=== PATIENT | female | born 1965 | race African-American/Black ===

== ENCOUNTER → 2016-10-02 | Outpatient (CLI) | payer SELFPAY ==
[~2016-10-02] MED LIST: ESCITALOPRAM OX10 MG PO; LASIX20 MG PO; LISINOPRIL20 MG PO; LOPRESSOR PO; ZOCOR20 MG PO
== END | disposition home or self-care (01) ==
LOC: CBAR 10-01 08:19
DX: E66.01 Morbid (severe) obesity due to excess calories (principal)
CPT/HCPCS: 76000